=== PATIENT | female | born 1985 | race African-American/Black ===

== ENCOUNTER 2016-05-28 06:00 | Day surgery (SDC) | payer MEDICAID ==
[~2016-05-28 06:00] MED LIST: COLACE100 MG PO; HYDROCODONE; IBUPROFEN800 M1 PO; IRON1 TA1 PO; IRON325 M3 PO; LORTAB 5-500 T1 EAC1 PO; MOTRIN800 MG PO; NAPROSYN; NAPROSYN500 MG PO; NAPROXYN500 MG/TA1 GT; NORCO 5/3251 TAB PO; PHENTERMINE HCL15 M1 PO; PREDNISONE10 MG PO; PRENATAL VITAM1 EAC8 PO; PRENATAL1 TAB; TYLENOL WITH C1 EACH PO; VIBRAMYCIN100 MG/TA1 PO
[2016-05-28 07:02] LABS: HCT-HEMATOCRIT 33.7 % (34.0-49.0); HGB-HEMOGLOBIN 10.2 gm/dl (12.0-15.5); MCV (MEAN CELL VOLUME) 74.6 fl (82.0-96.0); RED CELL DISTRIBUTION WIDTH 15.8 % (12.4-16.4)
== END 2016-05-28 16:40 ==
LOC: SRG 06:00 → SHSC 06:01 → ORW 07:44 → PACU 09:46 → SHSC 10:50 → SHSB 12:00
PROVIDERS: Anesthesiology
PROC: 0HBV0ZZ Excision of Bilateral Breast, Open Approach (ICD-10-PCS; principal; 2016-05-28)
DX: N60.89 Other benign mammary dysplasias of unspecified breast (principal); E66.9 Obesity, unspecified; Z88.6 Allergy status to analgesic agent; Z79.899 Other long term (current) drug therapy
CPT/HCPCS: J0690; J1170; J2250; J2405; J2550